=== PATIENT | female | born 1995 | race Caucasian/White ===

== ENCOUNTER 2018-02-04 08:26 | Emergency (ER) | payer BC, OTHER ==
[2018-02-04] MEDS ORDERED: NA CHLORIDE 0.9% 1,000 ML ONE (08:55)
[2018-02-04 09:18] LABS: Absolute Monocytes 0.9 K/uL (0.1-1.3); Basophils % 0.4 % (0-1.3); Eosinophils % 2.2 % (0-4.4); Hematocrit 35.4 % (36.0-45.0); Lymphocytes % 22.5 % (15.3-44.8); MCH 26.5 pg (27.0-35.0); MCV 79.4 fL (80-100); MPV 7.2 fL (7.6-11.3); Monocytes % 6.9 % (3.3-12.3); RBC Red Blood Cell Count 4.46 M/uL (3.86-4.86)
[2018-02-04 09:45] LABS: BUN Blood Urea Nitrogen 9 mg/dL (7-18); Bicarbonate 27 mmol/L (21-32); Glucose Level 98 mg/dL (74-106); Sodium Level 139 mmol/L (136-145); Troponin (Emerg Dept Use Only) < 0.02 ng/mL (0.0-0.045)
--- NOTE | 2018-02-04 10:20 | RAD REPORT ---
EXAM DESCRIPTION: RAD - Chest Pa And Lat (2 Views) - 02/04/2018 9:55 am CLINICAL HISTORY: Left-sided chest pain, near syncope, tachycardia COMPARISON: None. TECHNIQUE: PA and lateral views of the chest were obtained. FINDINGS: The lungs are clear. Heart size is normal and central vasculature is within normal limit s. No pleural effusion or pneumothorax seen. No acute bony finding noted. No aortic abnormality. IMPRESSION: No acute cardiopulmonary process.
--- NOTE | 2018-02-04 10:49 | ER ---
Nurse's Notes [facility] Name: Salud Recinos Age: 22 yrs Sex: Female : 1995 Arrival Date: 02/04/2018 Time: 08:27 Bed 6 Private MD: None, None Diagnosis: Chest pain, unspecified;Palpitations Presentation: 02/04 08:28 Presenting complaint: Patient states: was driving and her heart started racing, hands sv and feet got cold and felt like she was going to pass out. Lasted about 1.5 mins, went away, called EMS, refused EMS transport and had another episode. Now c/o left sided chest soreness. Transition of care: patient was not received from another setting of care. Onset of symptoms was February 04, 2018. Risk Assessment: Do you want to hurt yourself or someone else? Patient reports no desire to harm self or others. Care prior to arrival: None. 08:28 Method Of Arrival: Ambulatory sv 08:28 Acuity: [place] 3 sv 08:30 Note Reports having her Mirena removed last week. Has had no energy drink x 4 days. sv 09:20 Initial Sepsis Screen: Does the patient meet any 2 criteria? No. Patient's initial hb sepsis screen is negative. Does the patient have a suspected source of infection? No. Patient's initial sepsis screen is negative. Triage Assessment: 08:28 General: Appears in no apparent distress. uncomfortable, obese, well developed, sv Behavior is calm, cooperative, appropriate for age. Pain: Complains of pain in anterior aspect of left upper chest Pain currently is 1 out of 10 on a pain scale. EENT: No signs and/or symptoms were reported regarding the EENT system. Neuro: Level of Consciousness is awake, alert, obeys commands, Oriented to person, place, time, situation, Moves all extremities. Full function Gait is steady, Speech is normal. Cardiovascular: Patient's skin is warm and dry. Respiratory: Respiratory effort is even, unlabored, Respiratory pattern is regular, symmetrical. Derm: Skin is normal. 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 - Social history:: Smoking status: Patient/guardian denies using tobacco, Patient uses alcohol, but reports only rare drinking. Patient/guardian denies using street drugs, IV drugs. - Ebola Screening: : No symptoms or risks identified at this time. - Family history:: not pertinent. - Hospitalizations: : No recent hospitalization is reported. Screenin:00 Abuse screen: Denies threats or abuse. Denies injuries from another. Nutritional sg screening: No deficits noted. Tuberculosis screening: No symptoms or risk factors identified. Never had TB. Fall Risk None identified. Assessment: 09:00 General: Appears in no apparent distress. comfortable, well groomed, well developed, sg well nourished, Behavior is calm, cooperative, appropriate for age. Pain: Complains of pain in anterior aspect of left upper chest Quality of pain is described as sharp, stabbing. Neuro: Level of Consciousness is awake, alert, obeys commands. 09:15 Cardiovascular: Heart tones S1 S2 present Capillary refill is brisk in bilateral sg fingers Patient's skin is warm and dry. Chest pain is described as mild. Respiratory: Airway is patent Respiratory effort is even, unlabored, Respiratory pattern is regular, symmetrical. GI: Abdomen is round non-distended. : No signs and/or symptoms were reported regarding the genitourinary system. EENT: No signs and/or symptoms were reported regarding the EENT system. Derm: Skin is pink, warm \T\ dry. Musculoskeletal: Circulation, motion, and sensation intact. Range of motion: intact in all extremities, Swelling absent. 10:47 Reassessment: Patient appears in no apparent distress at this time. Patient and/or sg family updated on plan of care and expected duration. Pain level reassessed. Patient is alert, oriented x 3, equal unlabored respirations, skin warm/dry/pink. at bedside at this time updating pt on POC and results, pt stated understanding, awaiting dispo orders Patient states feeling better. Vital Signs: 08:39 BP 142 / 97; Pulse 103; Resp 20; Temp 98.3; Pulse Ox 100% ; Weight 113.4 kg; Height 5 sv ft. 0 in. (152.40 cm); Pain 1/10; 10:48 BP 139 / 73; Pulse 82 MON; Resp 18 S; Pulse Ox 100% on R/A; sg 08:39 Body Mass Index 48.82 (113.40 kg, 152.40 cm) sv ED Course: 08:27 Patient arrived in ED. sb2 08:27 None, None is Private Physician. sb2 08:29 Dylan Hernandez MD is Attending Physician. rn 08:39 Triage completed. sv 08:40 Mark Parker, RN is Primary Nurse. sg 08:40 Arm band placed on right wrist. sv 08:43 EKG done, by nutrition technician. reviewed by Dylan Hernandez MD. at1 09:08 Inserted saline lock: 22 gauge in right antecubital area, using aseptic technique. ss Blood collected. Patient maintains SpO2 saturation greater than 95% on room air. 09:15 Patient has correct armband on for positive identification. Placed in gown. Bed in low hb position. Call light in reach. Side rails up X 1. electronic device monitor on. Pulse ox on. NIBP on. 09:52 X-ray completed. Patient tolerated procedure well. Patient moved back from radiology. jb2 09:52 XRAY Chest Pa And Lat (2 Views) In Process Unspecified. EDMS 11:00 No provider procedures requiring assistance completed. IV discontinued, intact, hb bleeding controlled, No redness/swelling at site. Pressure dressing applied. Administered Medications: 09:10 Drug: NS 0.9% 1000 ml Route: IV; Rate: 1000 ml; Site: right antecubital; sg Outcome: 10:48 Discharge ordered by . rn 11:00 Discharged to home ambulatory, with family. hb 11:00 Condition: stable 11:00 Discharge instructions given to patient, Instructed on discharge instructions, follow up and referral plans. Demonstrated understanding of instructions, follow-up care. 11:06 Patient left the ED. Signatures: Dispatcher [employer] EDMS Emelia Hall RN RN Mark Parker, RN RN Huang Petit jb2 Dylan Hernandez MD MD rn Smirch, Shelby, RN RN Vijaya Flores, resource conservation manager EKG Tat1 Juju Hare RN RN Silvia Pearson sb2 Corrections: (The following items were deleted from the chart) 08:41 08:28 Presenting complaint: Patient states: was driving and her heart started racing, sv hands and feet got cold and felt like she was going to pass out. Lasted about 1.5 mins, went away, called EMS, refused EMS transport and had another episode. sv 09:16 09:00 Neuro: Level of Consciousness is awake, alert, obeys commands, sg sg
--- NOTE | 2018-02-04 10:49 | EDPHYS ---
Physician Documentation [facility] Name: Salud Recinos Age: 22 yrs Sex: Female : 1995 Arrival Date: 02/04/2018 Time: 08:27 Bed 6 Private MD: None, None ED Physician Dylan Hernandez HPI: 02/04 08:38 This 22 yrs old Female presents to ER via Unassigned with complaints of Chest rn Pain. 08:38 The patient or guardian reports chest pain that is located primarily in the anterior rn chest wall. The pain does not radiate. Associated signs and symptoms: Pertinent positives: near-syncope, palpitations, Pertinent negatives: abdominal pain, cough, diaphoresis, headache, recent travel, shortness of breath, syncope, vomiting. The chest pain is described as sharp. Duration: The patient or guardian reports a single episode, that lasted 2 minute(s). Modifying factors: The symptoms are alleviated by nothing. the symptoms are aggravated by nothing. Severity of pain: At its worst the pain was mild in the emergency department the pain has resolved. The patient has not experienced similar symptoms in the past. The patient has not recently seen a physician. Palpitations and sharp chest pain that lasted for 1.5 min while driving, acute onset, now resolved. Recently taken off of control, no trauma, no famhx of early cardiac problems/.. 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 - Social history:: Smoking status: Patient/guardian denies using tobacco, Patient uses alcohol, but reports only rare drinking. Patient/guardian denies using street drugs, IV drugs. - Ebola Screening: : No symptoms or risks identified at this time. - Family history:: not pertinent. - Hospitalizations: : No recent hospitalization is reported. ROS: 08:38 Constitutional: Negative for fever, chills, and weight loss, Eyes: Negative for injury, rn pain, redness, and discharge, Neck: Negative for injury, pain, and swelling, Cardiovascular: Negative for edema, Respiratory: Negative for shortness of breath, cough, wheezing, and pleuritic chest pain, Abdomen/GI: Negative for abdominal pain, nausea, vomiting, diarrhea, and constipation, MS/Extremity: Negative for injury and deformity, Skin: Negative for injury, rash, and discoloration, Neuro: Negative for headache, weakness, numbness, tingling, and seizure. Exam: 08:38 Constitutional: This is a well developed, well nourished patient who is awake, alert, rn and in no acute distress. Head/Face: Normocephalic, atraumatic. Eyes: Pupils equal round and reactive to light, extra-ocular motions intact. Lids and lashes normal. Conjunctiva and sclera are non-icteric and not injected. Cornea within normal limits. Periorbital areas with no swelling, redness, or edema. Chest/axilla: Normal chest wall appearance and motion. Nontender with no deformity. Cardiovascular: mild tachycardia with normal S1/S2, no murmur Respiratory: mild tachypnea but clear bilateral breath sounds, speaking full sentences Abdomen/GI: Soft, non-tender, with normal bowel sounds. No distension or tympany. No guarding or rebound. No evidence of tenderness throughout. MS/ Extremity: Pulses equal, no cyanosis. Neurovascular intact. Full, normal range of motion. Equal circumference. Neuro: Awake and alert, GCS 15, oriented to person, place, time, and situation. Cranial nerves II-XII grossly intact. Motor strength 5/5 in all extremities. Sensory grossly intact. 08:42 ECG was reviewed by the Attending Physician. rn Vital Signs: 08:39 BP 142 / 97; Pulse 103; Resp 20; Temp 98.3; Pulse Ox 100% ; Weight 113.4 kg; Height 5 sv ft. 0 in. (152.40 cm); Pain 1/10; 10:48 BP 139 / 73; Pulse 82 MON; Resp 18 S; Pulse Ox 100% on R/A; sg 08:39 Body Mass Index 48.82 (113.40 kg, 152.40 cm) sv MDM: 08:29 Patient medically screened. rn 10:47 Differential diagnosis: acute pericarditis, anxiety, chest wall pain, costochondritis, rn esophagitis, gastritis, gastroesophageal reflux disease (GERD), pleurisy, pneumonia, pneumothorax, pulmonary embolus. Data reviewed: vital signs, nurses notes, lab test result(s), radiologic studies, plain films, and as a result, I will discharge patient. Counseling: I had a detailed discussion with the patient and/or guardian regarding: the historical points, exam findings, and any diagnostic results supporting the discharge/admit diagnosis, lab results, radiology results, the need for outpatient follow up, to return to the emergency department if symptoms worsen or persist or if there are any questions or concerns that arise at home. Response to treatment: the patient's symptoms have markedly improved after treatment, the patient's condition has returned to base line, the patient is now symptom free, patient is well hydrated. and as a result, I will discharge patient. Special discussion: Based on the patient's history, exam, and Dx evaluation, there is no indication for emergent intervention or inpatient Tx. It is understood by the patient/guardian that if the Sx's persist or worsen they need to return immediately for re-evaluation. I discussed with the patient/guardian in detail that at this point there is no indication for admission to the hospital. It is understood, however, that if the symptoms persist or worsen the patient needs to return immediately for re-evaluation. Based on the history and exam findings, there is no indication for further emergent testing or inpatient evaluation. I discussed with the patient/guardian the need to see the risk management internship for further evaluation of the symptoms. I discussed with the patient/guardian the need to see the primary care provider for further evaluation of the symptoms. ED course: Recommended outpt f/u with pcp/cardiology with ECHO to rule out MVP. Return precautions given, asymptomatic, will dc home. . 02/04 08:37 Order name: CBC with Diff; Complete Time: :02/04 08:37 Order name: Basic Metabolic Panel; Complete Time: 10:02/04 08:37 Order name: Urine Microscopic Only rn 02/04 08:37 Order name: D-Dimer; Complete Time: :02/04 08:37 Order name: Troponin (emerg Dept Use Only); Complete Time: 10:02/04 08:37 Order name: TSH; Complete Time: 10:02/04 08:37 Order name: IV Start; Complete Time: 09:02/04 08:37 Order name: Urine Test (obtain specimen); Complete Time: 10: rn 02/04 08:37 Order name: EKG; Complete Time: 08:37 rn 02/04 08:37 Order name: T4 Free; Complete Time: 10:04 rn 02/04 09:22 Order name: XRAY Chest Pa And Lat (2 Views); Complete Time: 10:25 rn 02/04 10:28 Order name: Urine Dipstick--Ancillary (enter results) bd 02/04 10:28 Order name: Urine --Ancillary (enter results) bd 02/04 08:37 Order name: Urine Dipstick-Ancillary (obtain specimen); Complete Time: 10:23 rn 02/04 08:37 Order name: EKG - Nurse/Tech; Complete Time: 08:41 rn EC:42 Rate is 95 beats/min. Rhythm is regular. QRS [place] is Normal. [place] interval is normal. QRS rn interval is normal. QT interval is normal. No Q waves. T waves are Normal. No ST changes noted. Clinical impression: LVH and No evidence of ischemia. Interpreted by me. Administered Medications: 09:10 Drug: NS 0.9% 1000 ml Route: IV; Rate: 1000 ml; Site: right antecubital; sg Disposition: 02/04/18 10:48 Discharged to Home. Impression: Chest pain, unspecified, Palpitations. - Condition is Stable. - Discharge Instructions: Nonspecific Chest Pain, Palpitations. - Work release form, Medication Reconciliation Form, Thank You Letter, Antibiotic Education, Prescription Opioid Use form. - Follow up: Private Physician; When: As needed; Reason: Recheck today's complaints, Re-evaluation by your physician. - Problem is new. - Symptoms have improved. Signatures: Dispatcher [employer] Emelia Gann RN RN sv Gay, Steven, RN RN Dylan Hernandez MD MD rn Smirch, Shelby, RN RN ss Corrections: (The following items were deleted from the chart) 11:06 10:48 02/04/2018 10:48 Discharged to Home. Impression: Chest pain, unspecified; ss Palpitations. Condition is Stable. Forms are Medication Reconciliation Form, Thank You Letter, Antibiotic Education, Prescription Opioid Use. Follow up: Private Physician; When: As needed; Reason: Recheck today's complaints, Re-evaluation by your physician. Problem is new. Symptoms have improved. rn
[2018-02-04 11:12] VITALS: TEMP 98.3; O2SAT 100
[2018-02-04 11:13] VITALS: BP 139/73
[2018-02-04 11:15] LABS: Urine Blood 1+ (NEG); Urine Glucose NEGATIVE (NEG); Urine Protein NEGATIVE (NEG)
[2018-02-04 11:15] LABS: Urine Bacteria NONE SEEN /HPF (<20); Urine Culture Reflex Order NOT NEEDED
--- NOTE | 2018-02-04 15:37 | EKG ---
Test Date: 2018-02-04 Test Time: 08:37:42 Vp Of Product: LINSEY MEASUREMENT RESULTS: Intervals: Rate: 95 [place]: 144 QRSD: 84 QT: 378 QTc: 475 [place]: P: 29 [place]: 144 QRS: -8 T: 15 INTERPRETIVE STATEMENTS: Normal sinus rhythm Minimal voltage criteria for LVH, may be normal variant Borderline ECG No previous ECG available for comparison Electronically Signed On 02-04-18 15:34:43 CDT by Daryl Richter
== END 2018-02-04 11:06 | disposition home or self-care (01) ==
LOC: ER 08:26
DX: R00.2 Palpitations (principal)
CPT/HCPCS: 36415; 71046; 80048; 81003; 81015; 81025; 84439; 84443; 84484; 85025; 85379; 93005; 99285; J7030

== ENCOUNTER 2018-09-30 02:53 | Emergency (ER) | payer BC ==
[2018-09-30 03:44] LABS: Absolute Lymphocytes (CBC) 4.5 K/uL (0.7-4.9); Absolute Monocytes 1.1 K/uL (0.1-1.3); Absolute Neutrophil 8.3 K/uL (1.8-8.0); Basophils % 0.7 % (0-1.3); Eosinophils % 2.2 % (0-4.4); Hematocrit 37.3 % (36.0-45.0); Lymphocytes % 31.2 % (15.3-44.8); MPV 7.9 fL (7.6-11.3); Monocytes % 7.6 % (3.3-12.3)
[2018-09-30 03:45] LABS: Protime INR 1.04
[2018-09-30 04:01] LABS: ALT/SGPT 32 U/L (12-78); AST/SGOT 21 U/L (15-37); Albumin 3.2 g/dL (3.4-5.0); Alkaline Phosphatase 106 U/L (45-117); BUN Blood Urea Nitrogen 11 mg/dL (7-18); Bicarbonate 25 mmol/L (21-32); Bilirubin Direct < 0.1 mg/dL (0-0.2); Bilirubin Total 0.2 mg/dL (0.2-1.0); Glucose Level 101 mg/dL (74-106); Magnesium 2.1 mg/dL (1.8-2.4); NT PRO-BNP 50 pg/mL (<125); Potassium 3.8 mmol/L (3.5-5.1); Protein, Total 7.2 g/dL (6.4-8.2); Sodium Level 140 mmol/L (136-145); Troponin (Emerg Dept Use Only) < 0.02 ng/mL (0.0-0.045)
[2018-09-30] MEDS ORDERED: KETOROLAC 30 MG/ML INJ ONE (05:21)
--- NOTE | 2018-09-30 05:51 | EDPHYS ---
Physician Documentation [facility] Name: Salud Recinos Age: 23 yrs Sex: Female : 1995 Arrival Date: 09/30/2018 Time: 02:57 Bed 5 Private MD: ED Physician Te Torres HPI: 09/30 03:51 This 23 yrs old Female presents to ER via Ambulatory with complaints of Chest tw4 Pain. 03:51 The patient or guardian reports chest pain that is located primarily in the anterior tw4 chest wall, left. The pain radiates to the left arm. Associated signs and symptoms: The patient has no apparent associated signs or symptoms. The chest pain is described as dull. Duration: The patient or guardian reports a single episode. Modifying factors: The symptoms are alleviated by nothing. the symptoms are aggravated by nothing. Severity of pain: At its worst the pain was moderate in the emergency department the pain is unchanged. The patient has not experienced similar symptoms in the past. Historical: - Allergies: 03:21 No Known Allergies; ea - Home Meds: 03:21 None [Active]; ea - PMHx: 03:21 None; ea - PSHx: 03:21 left hand; ea - Immunization history:: Adult Immunizations up to date. - Social history:: Smoking status: Patient/guardian denies using tobacco. - Ebola Screening: : No symptoms or risks identified at this time. ROS: 03:51 Constitutional: Negative for fever, chills, and weight loss, Eyes: Negative for injury, tw4 pain, redness, and discharge, Respiratory: Negative for shortness of breath, cough, wheezing, and pleuritic chest pain, Abdomen/GI: Negative for abdominal pain, nausea, vomiting, diarrhea, and constipation, Back: Negative for injury and pain, MS/Extremity: Negative for injury and deformity, Skin: Negative for injury, rash, and discoloration. 03:51 Cardiovascular: Positive for chest pain, Negative for edema, orthopnea, palpitations, paroxysmal nocturnal dyspnea. Exam: 03:51 Constitutional: This is a well developed, well nourished patient who is awake, alert, tw4 and in no acute distress. Head/Face: Normocephalic, atraumatic. Chest/axilla: Normal chest wall appearance and motion. Nontender with no deformity. No lesions are appreciated. 06:59 Cardiovascular: Regular rate and rhythm with a normal S1 and S2. No gallops, murmurs, tw4 or rubs. Normal PMI, no JVD. No pulse deficits. Respiratory: Lungs have equal breath sounds bilaterally, clear to auscultation and percussion. No rales, rhonchi or wheezes noted. No increased work of breathing, no retractions or nasal flaring. Abdomen/GI: Soft, non-tender, with normal bowel sounds. No distension or tympany. No guarding or rebound. No evidence of tenderness throughout. Back: No spinal tenderness. No costovertebral tenderness. Full range of motion. MS/ Extremity: Pulses equal, no cyanosis. Neurovascular intact. Full, normal range of motion. Neuro: Awake and alert, GCS 15, oriented to person, place, time, and situation. Cranial nerves II-XII grossly intact. Motor strength 5/5 in all extremities. Sensory grossly intact. Cerebellar exam normal. Normal gait. Psych: Awake, alert, with orientation to person, place and time. Behavior, mood, and affect are within normal limits. Vital Signs: 03:20 BP 140 / 90; Pulse 74; Resp 18; Temp 97.5(O); Pulse Ox 97% ; Weight 120.2 kg; Height 5 ea ft. 0 in. (152.40 cm); Pain 6/10; 04:07 Pulse 74; Resp 14; Pulse Ox 97% on R/A; tl2 05:47 BP 135 / 90; Pulse 83; Resp 19; Pulse Ox 98% on R/A; ea 03:20 Body Mass Index 51.75 (120.20 kg, 152.40 cm) ea MDM: 03:09 Patient medically screened. tw4 06:59 Differential diagnosis: acute pericarditis, anxiety, esophagitis, herpes zoster, hiatal tw4 hernia, stable angina. Data reviewed: vital signs, nurses notes. Data interpreted: ekg monitor: rhythm is Pulse oximetry: Interpretation: normal. Test interpretation: by ED physician or midlevel provider: ECG, plain radiologic studies. Counseling: I had a detailed discussion with the patient and/or guardian regarding: the historical points, exam findings, and any diagnostic results supporting the discharge/admit diagnosis, lab results. Medication response: GI Cocktail partially relieved the patient's pain, Toradol partially relieved the patient's pain. Response to treatment: and as a result, I will discharge patient. Special discussion: Based on the patient's history, exam, and Dx evaluation, there is no indication for emergent intervention or inpatient Tx. It is understood by the patient/guardian that if the Sx's persist or worsen they need to return immediately for re-evaluation. I discussed with the patient/guardian in detail that at this point there is no indication for admission to the hospital. It is understood, however, that if the symptoms persist or worsen the patient needs to return immediately for re-evaluation. 09/30 03:24 Order name: Basic Metabolic Panel; Complete Time: 04:52 09/30 04:52 Interpretation: Normal except: CL 109. 09/30 03:24 Order name: CBC with Diff; Complete Time: 04:52 09/30 04:53 Interpretation: Normal except: WBC 14.3; MCH 25.7; MCV 79.5; NEUT A 8.3. 09/30 03:24 Order name: LFT's; Complete Time: 04:53 09/30 04:53 Interpretation: Normal except: A/G 0.8; GLOB 4.0; ALB 3.2. 09/30 03:24 Order name: Magnesium; Complete Time: 04:53 09/30 04:53 Interpretation: Within normal limits: MG 2.1. 09/30 03:24 Order name: NT PRO-BNP; Complete Time: 04:53 09/30 04:53 Interpretation: Within normal limits: NT PRO-BNP 50. 09/30 03:24 Order name: PT-INR; Complete Time: 04:53 09/30 04:53 Interpretation: Within normal limits: PT 12.3. 09/30 03:24 Order name: Troponin (emerg Dept Use Only); Complete Time: 04:53 09/30 04:53 Interpretation: Within normal limits: TROPED < 0.02. 09/30 03:24 Order name: XRAY Chest (1 view) 09/30 03:24 Order name: EKG; Complete Time: 03:25 09/30 03:24 Order name: Cardiac monitoring; Complete Time: 03:25 09/30 03:24 Order name: EKG - Nurse/Tech; Complete Time: 03:25 tl2 09/30 03:24 Order name: IV Saline Lock; Complete Time: 03:25 tl2 09/30 03:24 Order name: Labs collected and sent; Complete Time: 03:45 tl2 09/30 03:24 Order name: O2 Per Protocol; Complete Time: 03:25 tl2 09/30 03:24 Order name: O2 Sat Monitoring; Complete Time: 03:25 tl2 EC:59 Rate is 83 beats/min. Rhythm is regular. QRS [place] is Normal. [place] interval is normal. QT tw4 interval is normal. T waves are Normal. No ST changes noted. Clinical impression: Normal ECG. Interpreted by me. Reviewed by me. Administered Medications: 05:11 Drug: TORadol 30 mg Route: IVP; Site: right antecubital; tl2 05:46 Follow up: Response: No adverse reaction ea 05:46 Drug: GI Cocktail without - (Maalox Suspension 30 ml, Lidocaine Liquid 2 % 15 ea ml) Route: PO; 06:01 Follow up: Response: No adverse reaction; Marked relief of symptoms tl2 Disposition: 09/30/18 05:50 Discharged to Home. Impression: Chest pain, unspecified. - Condition is Stable. - Discharge Instructions: Nonspecific Chest Pain, Pain Without a Known Cause. - Prescriptions for Ibuprofen 600 mg Oral Tablet - take 1 tablet by ORAL route every 6 hours As needed take with food; 30 tablet. - Family Work Release, Medication Reconciliation Form, Thank You Letter, Antibiotic Education, Prescription Opioid Use form. - Follow up: Private Physician; When: Upon discharge from the Emergency Department; Reason: If symptoms return, Recheck today's complaints, Continuance of care. - Problem is new. - Symptoms have improved. Signatures: Dispatcher [employer] Huma Branch RN RN tl2 Dora Reilly RN RN ea Wadley, Terrence, MD MD tw4 Corrections: (The following items were deleted from the chart) 06:05 05:50 09/30/2018 05:50 Discharged to Home. Impression: Chest pain, unspecified. ea Condition is Stable. Forms are Medication Reconciliation Form, Thank You Letter, Antibiotic Education, Prescription Opioid Use. Follow up: Private Physician; When: Upon discharge from the Emergency Department; Reason: If symptoms return, Recheck today's complaints, Continuance of care. Problem is new. Symptoms have improved. tw4
--- NOTE | 2018-09-30 05:51 | ER ---
Nurse's Notes [facility] Name: Salud Recinos Age: 23 yrs Sex: Female : 1995 Arrival Date: 09/30/2018 Time: 02:57 Bed 5 Private MD: Diagnosis: Chest pain, unspecified Presentation: 09/30 03:05 Presenting complaint: Patient states: Pt reports she started having chest pain that ea woke her up out of her sleep about thirty minutes ago. Pt reports pain starts in the center of her chest and radiates down to her left shoulder. Transition of care: patient was not received from another setting of care. Onset of symptoms was September 30, 2018. Risk Assessment: Do you want to hurt yourself or someone else? Patient reports no desire to harm self or others. Initial Sepsis Screen: Does the patient meet any 2 criteria? No. Patient's initial sepsis screen is negative. Does the patient have a suspected source of infection? No. Patient's initial sepsis screen is negative. Care prior to arrival: None. 03:05 Method Of Arrival: Ambulatory ea 03:05 Acuity: [place] 3 ea Historical: - Allergies: 03:21 No Known Allergies; ea - Home Meds: 03:21 None [Active]; ea - PMHx: 03:21 None; ea - PSHx: 03:21 left hand; ea - Immunization history:: Adult Immunizations up to date. - Social history:: Smoking status: Patient/guardian denies using tobacco. - Ebola Screening: : No symptoms or risks identified at this time. Screenin:21 Abuse screen: Denies threats or abuse. Nutritional screening: No deficits noted. ea Tuberculosis screening: No symptoms or risk factors identified. Fall Risk IV access (20 points). Assessment: 03:22 General: Appears uncomfortable, Behavior is calm, cooperative, appropriate for age. ea Pain: Complains of pain in chest Pain does not radiate. Pain currently is 6 out of 10 on a pain scale. Quality of pain is described as pressure, Pain began 1 hour ago. Is continuous. Neuro: Level of Consciousness is awake, alert, obeys commands, Oriented to person, place, time, situation. Cardiovascular: Patient's skin is warm and dry. Respiratory: Airway is patent Respiratory effort is even, unlabored, Respiratory pattern is regular, symmetrical. Derm: Skin is pink, warm \T\ dry. 04:30 Reassessment: Patient and/or family updated on plan of care and expected duration. Pain ea level reassessed. Patient is alert, oriented x 3, equal unlabored respirations, skin warm/dry/pink. 05:47 Reassessment: Patient and/or family updated on plan of care and expected duration. Pain ea level reassessed. Patient is alert, oriented x 3, equal unlabored respirations, skin warm/dry/pink. 06:03 Reassessment: Patient and/or family updated on plan of care and expected duration. Pain ea level reassessed. Patient is alert, oriented x 3, equal unlabored respirations, skin warm/dry/pink. Discharge instruction to patient, verbalized the understanding of instruction. No s/s of pain or discomfort noted at this time. Pt left ambulatory with significant other, tolerating well. Patient states symptoms have improved. Vital Signs: 03:20 BP 140 / 90; Pulse 74; Resp 18; Temp 97.5(O); Pulse Ox 97% ; Weight 120.2 kg; Height 5 ea ft. 0 in. (152.40 cm); Pain 6/10; 04:07 Pulse 74; Resp 14; Pulse Ox 97% on R/A; tl2 05:47 BP 135 / 90; Pulse 83; Resp 19; Pulse Ox 98% on R/A; ea 03:20 Body Mass Index 51.75 (120.20 kg, 152.40 cm) ea Vitals: 04:07 Cardiac Rhythm Assessment Sinus rhythm. tl2 ED Course: 02:10 Arm band placed on right wrist. Patient placed in an exam room, on a stretcher, on ea cardiac specialist, on pulse oximetry. 02:57 Patient arrived in ED. es 03:03 Te Torres MD is Attending Physician. tw4 03:20 Triage completed. ea 03:21 Inserted saline lock: 20 gauge in right antecubital area, using aseptic technique. ea Blood collected. Patient maintains SpO2 saturation greater than 95% on room air. 03:23 Patient has correct armband on for positive identification. Placed in gown. Bed in low ea position. Call light in reach. Side rails up X 1. Adult w/ patient. 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 Pulse ox on. NIBP on. 03:24 Dora Reilly, RN is Primary Nurse. ea 03:57 X-ray completed. Portable x-ray completed in exam room. Patient tolerated procedure kw well. 03:58 XRAY Chest (1 view) In Process Unspecified. EDMS 05:58 IV discontinued, intact, bleeding controlled, No redness/swelling at site. Pressure ea dressing applied. 06:04 No provider procedures requiring assistance completed. ea Administered Medications: 05:11 Drug: TORadol 30 mg Route: IVP; Site: right antecubital; tl2 05:46 Follow up: Response: No adverse reaction ea 05:46 Drug: GI Cocktail without - (Maalox Suspension 30 ml, Lidocaine Liquid 2 % 15 ea ml) Route: PO; 06:01 Follow up: Response: No adverse reaction; Marked relief of symptoms tl2 Outcome: 05:50 Discharge ordered by . tw4 06:04 Discharged to home ambulatory, with significant other. ea 06:04 Condition: improved 06:04 Discharge instructions given to patient, Instructed on discharge instructions, follow up and referral plans. medication usage, Demonstrated understanding of instructions, follow-up care, medications, Prescriptions given X 1. 06:05 Patient left the ED. ea Signatures: Dispatcher [employer] EDYvette Thompson Kimberlee kw Knox, Taylor, RN RN tl2 Dora Reilly, RN RN Te Mendiola MD MD tw4
[2018-09-30] MEDS ORDERED: LIDOCAINE VISCOUS 2% SOLN 15 ML UDC ONE (05:55)
[2018-09-30] MEDS ORDERED: MAGNE/ALUM HYDROXD 30 ML UCUP ONE (05:55)
--- NOTE | 2018-09-30 07:53 | EKG ---
Test Date: 2018-09-30 Test Time: 03:08:36 Application Internship: [facility] MEASUREMENT RESULTS: Intervals: Rate: 83 [place]: 154 QRSD: 82 QT: 402 QTc: 472 [place]: P: 31 [place]: 154 QRS: -11 T: 9 INTERPRETIVE STATEMENTS: Normal sinus rhythm Moderate voltage criteria for LVH, may be normal variant Borderline ECG Compared to ECG 02/04/2018 08:37:42 No significant changes Electronically Signed On 09-30-18 07:52:22 CDT by Yaya Olivares
--- NOTE | 2018-09-30 08:35 | RAD REPORT ---
EXAM DESCRIPTION: [place] Single View09/30/2018 3:58 am CLINICAL HISTORY: Chest pain COMPARISON: January 2018 FINDINGS: The lungs appear clear of acute infiltrate. The heart is normal size IMPRESSION: No acute abnormalities displayed
[2018-09-30 13:59] VITALS: TEMP 97.5
[2018-09-30 14:02] VITALS: BP 135/90; O2SAT 98
== END 2018-09-30 06:05 | disposition home or self-care (01) ==
LOC: ER 02:53
DX: R07.9 Chest pain, unspecified (principal)
CPT/HCPCS: 36415; 71045; 80048; 80076; 83735; 83880; 84484; 85025; 85610; 93005; 96374; 99285